=== PATIENT | male | born 1970 | race Caucasian/White ===

== ENCOUNTER 2019-09-03 13:01 | Day surgery (SDC) | payer OTHER ==
[~2019-09-03] VITALS: Ht 165.1 cm; Wt 91.2 kg
[2019-09-03 13:31] VITALS: BP 145/94
[2019-09-03] MEDS ORDERED: TAMS-11 PO (13:31)
[2019-09-03] MEDS ORDERED: LEVO100T5 PO (13:31)
[2019-09-03 13:35] VITALS: BP 145/94
[2019-09-03] MEDS ORDERED: LACTATED RINGERS 1,000 ML IV SCH (13:39)
[2019-09-03] MEDS ORDERED: FENTANYL PF 100 MCG/2ML ONE ×2 (15:41→15:42)
[2019-09-03] MEDS ORDERED: SUCCINYLCHOLINE 20 MG/ML, 10ML ONE (15:48)
[2019-09-03] MEDS ORDERED: PROPOFOL 10 MG/ML, 20ML ONE (15:48)
[2019-09-03] MEDS ORDERED: ONDANSETRON 2MG/ML, 2ML ONE (15:48)
[2019-09-03] MEDS ORDERED: DEXAMETHASONE 4 MG/ML, 1ML ONE (15:48)
[2019-09-03] MEDS ORDERED: ROCURONIUM 10MG/ML,5ML ONE (15:48)
[2019-09-03] MEDS ORDERED: CEFAZOLIN 1,000 MG ONE (15:48)
[2019-09-03] MEDS ORDERED: NEOSTIGMINE 1 MG/ML, 10ML ONE (15:48)
[2019-09-03] MEDS ORDERED: GLYCOPYRROLATE 0.2MG/1ML, 5ML ONE (15:48)
[2019-09-03] MEDS ORDERED: KETOROLAC 30 MG/1 ML IV PRN (16:00)
[2019-09-03] MEDS ORDERED: MEPERIDINE/PF 25MG/0.5ML IVPush PRN (16:00)
[2019-09-03] MEDS ORDERED: LABETALOL 5MG/ML, 20ML IV PRN (16:00)
[2019-09-03] MEDS ORDERED: FENTANYL PF 100 MCG/2ML IV PRN (16:00)
[2019-09-03] MEDS ORDERED: ACETAMINOPHEN 325 MG TABLET PO PRN (16:00)
[2019-09-03] MEDS ORDERED: PROMETHAZINE 25 MG/ML, 1ML IV PRN (16:00)
[2019-09-03] MEDS ORDERED: HYDROmorphone 2 MG/ML, 1ML IVPush PRN (16:00)
[2019-09-03] MEDS ORDERED: hydrALAzine 20 MG/ML, 1ML IV PRN (16:00)
[2019-09-03] MEDS ORDERED: ALBUTEROL SULFATE 2.5 MG/3 ML NPPB PRN (16:00)
[2019-09-03] MEDS ORDERED: DIAZEPAM 5 MG/ML, 2ML IVPush PRN (16:00)
[2019-09-03] MEDS ORDERED: OXYcodone 5 MG/5 ML ORAL.SOL UDC PO PRN (16:00)
== END 2019-09-03 18:15 | disposition home or self-care (01) ==
LOC: OUT 13:01
PROVIDERS: ATTEND Urology
DX: N32.9 Bladder disorder, unspecified (principal); N30.20 Other chronic cystitis without hematuria; Z79.890 Hormone replacement therapy; Z79.899 Other long term (current) drug therapy; Z87.442 Personal history of urinary calculi
CPT/HCPCS: 52204; 88305; J0330; J0690; J1100; J2405; J2704; J3010; J7120; J2710